=== PATIENT | male | born 1955 | race Caucasian/White ===

== ENCOUNTER → 2019-03-27 | Outpatient (CLI) | payer MEDICARE, OTHER ==
[2019-03-27 15:00] LABS: BASO % 1 % (0-3); EOS % 0 % (0-3); HEMATOCRIT 36.6 % (39.0-53.0); LYMPH # 0.9 x10^3/uL (1.0-4.8); LYMPH % 15 % (24-48); MEAN CORPUSCULAR HEMOGLOBIN 27 pg (25-35); MEAN CORPUSCULAR HGB CONC 33 g/dL (31-37); MEAN CORPUSCULAR VOLUME 83 fL (79-100); MONO # 0.3 x10^3/uL (0.0-1.1); MONO % 5 % (0-9); NEUT % 79 % (31-73); PLATELET COUNT 378 x10^3/uL (140-400); RED BLOOD COUNT 4.41 x10^6/uL (4.30-5.70); WHITE BLOOD COUNT 6.3 x10^3/uL (4.0-11.0)
[2019-03-27 15:02] LABS: ALBUMIN 3.6 g/dL (3.4-5.0); ALBUMIN/GLOBULIN RATIO 1.2 (1.0-1.7); CALCIUM 8.1 mg/dL (8.5-10.1); CREATININE 0.9 mg/dL (0.7-1.3); GFR 85.2; POTASSIUM 5.1 mmol/L (3.5-5.1); TOTAL BILIRUBIN 0.4 mg/dL (0.2-1.0); TOTAL PROTEIN 6.7 g/dL (6.4-8.2)
== END | disposition home or self-care (01) ==
LOC: LAB 14:09
PROVIDERS: ATTEND Internal Medicine Rheumatology
DX: M25.80 Other specified joint disorders, unspecified joint (principal); M06.9 Rheumatoid arthritis, unspecified
CPT/HCPCS: 36415; 80053; 85025

== ENCOUNTER → 2019-04-23 | Outpatient (CLI) | payer MEDICARE, OTHER ==
[~2019-04-23] MED LIST: ASCO100T4 PO; BUPR150T15 PO; CHOL400C2 PO; FERR325T14 PO; FOLI20CA PO; HYDR-3165 PO; MAGN500C10 PO; MELO15TA23 PO; METH25VI27 SQ; POTA10TA32 PO; PRED2.5T PO; TAMS0.4C97 PO
--- NOTE | 2019-04-23 15:00 | RAD ---
Bone densitometry 04/23/2019 1:00 PM Indication: Screening exam. history of malignancy. Comparison Study: None. Discussion: Bone Densitometry was performed with dual photon absorption of the lumbar spine and proximal right femur Lumbar Spine: Bone average density is 1.294g/cm2 for L1-L4. T-Score is 1.0 Right femoral neck: Bone average density is 0.999g/cm2. T-Score is -0.3. IMPRESSION: Normal bone mineral density Note: Definitions established by the World Health Organization: Normal: T-score is -1.0 or above. Osteopenia: T-score is between -1.0 and -2.5. Osteoporosis: T-score is -2.5 or below. Electronically signed by: Jae Beltran MD (04/23/2019 2:58 PM) [id number]
== END | disposition home or self-care (01) ==
LOC: DXRAD 14:06
PROVIDERS: ATTEND Internal Medicine Rheumatology
DX: Z13.820 Encounter for screening for osteoporosis (principal); M85.80 Other specified disorders of bone density and structure, unspecified site; M81.0 Age-related osteoporosis without current pathological fracture; M25.50 Pain in unspecified joint; M06.9 Rheumatoid arthritis, unspecified
CPT/HCPCS: 77080

== ENCOUNTER → 2019-05-05 | Day surgery (SDC) | payer MEDICARE ==
[~2019-05-05] MED LIST changes: +ALBUTEROL SULFATE 2.5 MG/3 ML NEBU. NEB PRN; +ATROPINE 0.5 MG/5 ML DISP.SYRIN. IV PRN; +IV RINGERS SOLUTION,LACTATED 1,000 ML IV SCH; +ONDANSETRON PF 4 MG/2 ML VIAL. IV PRN; +PHENOL ORAL SPRAY 177ML BOTTLE. MM PRN; +PROPOFOL 20 ML IV ONE; +diphenhydrAMINE 50 MG/ML VIAL IV PRN
[2019-05-05 12:57] VITALS: BP 133/63
== END | disposition home or self-care (01) ==
LOC: SURG 10:18
PROVIDERS: ATTEND Emergency Medicine
DX: Z12.11 Encounter for screening for malignant neoplasm of colon (principal); K64.8 Other hemorrhoids; K63.89 Other specified diseases of intestine; D64.9 Anemia, unspecified; E89.0 Postprocedural hypothyroidism; Z85.038 Personal history of other malignant neoplasm of large intestine; Z88.6 Allergy status to analgesic agent; Z88.8 Allergy status to other drugs, medicaments and biological substances; Z96.642 Presence of left artificial hip joint; Z98.0 Intestinal bypass and anastomosis status
CPT/HCPCS: G0105; J2704; J7120; 45378

== ENCOUNTER → 2020-04-06 | Outpatient (CLI) | payer MEDICARE ==
[~2020-04-06] MED LIST changes: -ALBUTEROL SULFATE 2.5 MG/3 ML NEBU. NEB PRN; -ATROPINE 0.5 MG/5 ML DISP.SYRIN. IV PRN; -IV RINGERS SOLUTION,LACTATED 1,000 ML IV SCH; -ONDANSETRON PF 4 MG/2 ML VIAL. IV PRN; -PHENOL ORAL SPRAY 177ML BOTTLE. MM PRN; -PROPOFOL 20 ML IV ONE; +SIMV5TAB14 PO; -diphenhydrAMINE 50 MG/ML VIAL IV PRN
[2020-04-06 13:59] VITALS: BP 130/75
== END | disposition home or self-care (01) ==
LOC: SURG 13:40
PROVIDERS: ATTEND Anesthesiology
DX: M06.9 Rheumatoid arthritis, unspecified (principal); F11.90 Opioid use, unspecified, uncomplicated; D64.9 Anemia, unspecified; M81.0 Age-related osteoporosis without current pathological fracture; M25.50 Pain in unspecified joint; Z85.9 Personal history of malignant neoplasm, unspecified; Z88.5 Allergy status to narcotic agent; Z88.8 Allergy status to other drugs, medicaments and biological substances; Z79.899 Other long term (current) drug therapy; Z98.0 Intestinal bypass and anastomosis status; Z88.6 Allergy status to analgesic agent; Z96.642 Presence of left artificial hip joint; Z85.038 Personal history of other malignant neoplasm of large intestine
CPT/HCPCS: 99214; G0463